=== PATIENT | male | born 1965 | race Caucasian/White ===

== ENCOUNTER 2017-05-01 04:55 | Emergency (ER) | payer OTHER ==
[~2017-05-01] VITALS: Ht 180.3 cm; Wt 95.3 kg
[2017-05-01 05:52] VITALS: BP 135/75
--- NOTE | 2017-05-01 05:52 | NUR ---
CHILLS, ZALDIVAR, JOINT PAIN, GENERALIZED WEAKNESS X1 WK AND RINGING OF EARS X 6 MONTHS. PT AOX3 RR EVEN AND UNLABORED. NO SOB NOTED. NAD NOTED. NO NVD AT THIS TIME. PT GOWNED AND PLACED ON MONITOR WAITING FOR MD BARCENAS.
--- NOTE | 2017-05-01 06:10 | NUR ---
DR MILLER AT BEDSIDE FOR EVAL.
== END 2017-05-01 06:23 | disposition home or self-care (01) ==
LOC: ER 04:57
DX: R51 Headache (principal); H92.09 Otalgia, unspecified ear; R53.1 Weakness; F17.200 Nicotine dependence, unspecified, uncomplicated
CPT/HCPCS: 99283; A4606; Z7610

== ENCOUNTER 2020-01-22 09:18 | Emergency (ER) | payer OTHER ==
[~2020-01-22] VITALS: Ht 182.9 cm; Wt 99.8 kg
[2020-01-22 09:21] VITALS: BP 151/83
--- NOTE | 2020-01-22 09:30 | NUR ---
BIB C/O NECK PAIN FOR 1 WEEK "NECK PAIN GETTING WORSE AND WORSE" TOOK NORCO 5-325 AND FLEXERIL 5MG AT 6AM. PATIENT A/OX4, BREATHING EVEN AND UNLABORED, NO SOB NOTED, AMBULATORY WITH STEADY GAIT.
[2020-01-22] MEDS ORDERED: DEXAMETHASONE SOD PHOSPHATE 10 MG/ML VIAL ONE (10:13)
[2020-01-22] MEDS ORDERED: KETOROLAC TROMETHAMINE INJ 60 MG/2 ML VIAL IM ONE ×2 (10:13→10:30)
[2020-01-22] MEDS ORDERED: DIAZEPAM 5 MG/ML 2 ML DISP.SYRIN ONE (10:14)
--- NOTE | 2020-01-22 10:25 | NUR ---
Patient discharged to home in stable condition. Written and verbal after care instructions given. Patient verbalizes understanding of instruction.
[2020-01-22] MEDS ORDERED: DEXAMETHASONE SOD PHOSPHATE 10 MG/ML VIAL IM ONE (10:30)
[2020-01-22] MEDS ORDERED: DIAZEPAM 5 MG/ML 2 ML DISP.SYRIN IM ONE (10:30)
== END 2020-01-22 11:00 | disposition home or self-care (01) ==
LOC: ER 09:21
DX: M54.12 Radiculopathy, cervical region (principal); G89.29 Other chronic pain; F17.210 Nicotine dependence, cigarettes, uncomplicated; Z98.890 Other specified postprocedural states
CPT/HCPCS: 96372 ×2; 99284; J1100; J1885; J3360

== ENCOUNTER 2020-03-20 12:55 | Emergency (ER) | payer OTHER ==
[~2020-03-20] VITALS: Ht 182.9 cm; Wt 100.7 kg
--- NOTE | 2020-03-20 13:24 | NUR ---
urine collected and sent to lab
[2020-03-20 14:03] LABS: COLOR,URINE ORANGE (YELLOW); PH,URINE 5.5 (5.0-8.0)
[2020-03-20 14:14] LABS: BACTERIA,URINE Few /HPF (None Seen); SQUAMOUS EPITHELIAL CELL,UR Rare /HPF (None Seen)
[2020-03-20 14:40] VITALS: BP 121/67
--- NOTE | 2020-03-20 14:40 | NUR ---
Patient discharged to home in stable condition. Written and verbal after care instructions given. Patient verbalizes understanding of instruction.
== END 2020-03-20 14:41 | disposition home or self-care (01) ==
LOC: ER 13:01
DX: R30.0 Dysuria (principal); R09.81 Nasal congestion; R42 Dizziness and giddiness
CPT/HCPCS: 81000-TC; 82962-TC

== ENCOUNTER 2021-09-09 14:41 | Inpatient (IN) | payer OTHER ==
[~2021-09-09] VITALS: Ht 182.9 cm; Wt 97.5 kg
[2021-09-09] MEDS ORDERED: NITROGLYCERIN PACKET 1 GM PACKET ONE (15:18)
[2021-09-09] MEDS ORDERED: ASPIRIN 325 MG TABLET ONE (15:18)
[2021-09-09] MEDS ORDERED: ASPIRIN 325 MG TABLET PO ONE (15:30)
[2021-09-09] MEDS ORDERED: NITROGLYCERIN PACKET 1 GM PACKET TD ONE (15:30)
[2021-09-09 15:44] LABS: BASOPHILS # (AUTO) 0.1 K/uL (0.0-0.2); BASOPHILS % (AUTO) 0.6 % (0.0-2.0); EOSINOPHILS % (AUTO) 2.3 % (0.0-6.0); HEMATOCRIT 44 % (39-51); HEMOGLOBIN 14.7 g/dL (13.5-17.5); LYMPHOCYTES # (AUTO) 1.8 K/uL (0.8-4.8); LYMPHOCYTES % (AUTO) 16.5 % (20.0-44.0); MEAN CORPUSCULAR HGB CONC 34 g/dl (31.0-36.0); MEAN CORPUSCULAR VOLUME 93 fL (80-96); MONOCYTES # (AUTO) 0.6 K/uL (0.1-1.30); MONOCYTES % (AUTO) 5.6 % (2.0-12.0); NEUTROPHILS # (AUTO) 8.4 K/uL (1.8-8.9); PLATELET COUNT (AUTO) 232 K/uL (150-450); RED BLOOD CELL COUNT(AUTO) 4.69 MIL/uL (4.5-6.0); WHITE BLOOD COUNT (AUTO) 11.2 K/uL (4.3-11.0)
[2021-09-09] MEDS ORDERED: NAPR-1009 PO (15:50)
[2021-09-09] MEDS ORDERED: SUMA100T16 PO (15:50)
[2021-09-09] MEDS ORDERED: TEST5GEL2 TD (15:50)
[2021-09-09 16:17] LABS: ALANINE AMINOTRANSFERASE 28 U/L (12-78); ALBUMIN 3.5 g/dL (3.4-5.0); ALKALINE PHOSPHATASE 55 U/L (46-116); ASPARTATE AMINOTRANSFERASE 20 U/L (15-37); BILIRUBIN,DIRECT 0.1 mg/dL (0.0-0.2); CALCIUM, SERUM 8.9 mg/dL (8.5-10.1); CARBON DIOXIDE 22 mmol/L (21-32); CHLORIDE 106 mmol/L (98-107); CREATININE 1.2 mg/dL (0.6-1.3); GLUCOSE 116 mg/dL (74-106); POTASSIUM 3.7 mmol/L (3.5-5.1); SODIUM SERUM 138 mmol/L (136-145); TOTAL PROTEIN, SERUM 6.5 g/dL (6.4-8.2); UREA NITROGEN, BLOOD 25 mg/dL (7-18)
[2021-09-09 16:33] LABS: BILIRUBIN,TOTAL 0.6 mg/dL (0.2-1.0)
[2021-09-09] MEDS ORDERED: MORPHINE SULFATE INJ 2 MG/ML DISP.SYRIN IV PRN (19:00)
[2021-09-09] MEDS ORDERED: MAG HYDROX/AL HYDROX/SIMETH 30 ML UDC PO PRN (19:00)
[2021-09-09] MEDS ORDERED: HYDROCODONE/APAP 5/325MG TABLET PO PRN (19:00)
[2021-09-09] MEDS ORDERED: ONDANSETRON HCL/PF 4 MG/2 ML VIAL IVP PRN (19:00)
[2021-09-09] MEDS ORDERED: Z GUARD REMEDY 4 OZ OINT TP PRN (19:00)
[2021-09-09] MEDS ORDERED: NITROGLYCERIN 0.4 MG/TAB BOTTLE SL PRN (19:00)
[2021-09-09] MEDS ORDERED: ACETAMINOPHEN 325 MG TABLET PO PRN (19:00)
[2021-09-09 20:00] VITALS: BP 115/69
[2021-09-09] MEDS ORDERED: MAGNESIUM HYDROXIDE 30 ML UDC PO PRN (22:00)
[2021-09-10 02:17] VITALS: BP 119/65
[2021-09-10 04:00] VITALS: BP 100/61
[2021-09-10 06:11] LABS: BASOPHILS # (AUTO) 0.1 K/uL (0.0-0.2); BASOPHILS % (AUTO) 0.6 % (0.0-2.0); EOSINOPHILS % (AUTO) 3.1 % (0.0-6.0); HEMATOCRIT 41 % (39-51); HEMOGLOBIN 13.9 g/dL (13.5-17.5); LYMPHOCYTES # (AUTO) 1.8 K/uL (0.8-4.8); MEAN CORPUSCULAR HGB CONC 34 g/dl (31.0-36.0); MEAN CORPUSCULAR VOLUME 93 fL (80-96); MONOCYTES # (AUTO) 0.6 K/uL (0.1-1.30); MONOCYTES % (AUTO) 6.1 % (2.0-12.0); NEUTROPHILS # (AUTO) 6.8 K/uL (1.8-8.9); NEUTROPHILS % (AUTO) 71.2 % (43.0-81.0); PLATELET COUNT (AUTO) 213 K/uL (150-450); RED BLOOD CELL COUNT(AUTO) 4.37 MIL/uL (4.5-6.0); WHITE BLOOD COUNT (AUTO) 9.5 K/uL (4.3-11.0)
[2021-09-10 06:19] LABS: CALCIUM, SERUM 8.6 mg/dL (8.5-10.1); CREATININE 1.1 mg/dL (0.6-1.3); PHOSPHORUS 3.1 mg/dL (2.5-4.9); POTASSIUM 4.1 mmol/L (3.5-5.1)
[2021-09-10 08:35] VITALS: BP 121/66
[2021-09-10] MEDS ORDERED: TESTOSTERONE TD SCH (09:00)
[2021-09-10] MEDS ORDERED: ASPIRIN 325 MG TABLET PO SCH (09:00)
[2021-09-10] MEDS ORDERED: BUTALB/APAP/CAFFEINE 1 EACH TABLET PO PRN (11:00)
[2021-09-10 12:00] VITALS: BP 122/75
[2021-09-10] MEDS ORDERED: FAMOTIDINE (20 MG) 20 MG TABLET PO SCH (13:00)
[2021-09-10 16:00] VITALS: BP 121/67
[2021-09-10] MEDS ORDERED: ASPI-992 PO (18:16)
[2021-09-11] MEDS ORDERED: HOME MED MISCELLANEOUS TP SCH (09:00)
== END 2021-09-10 18:54 | disposition home or self-care (01) | DRG 203 ==
LOC: ER 14:45 → TRANSITION 17:45 → TELE 17:57 → MED 09-10 14:09
PROVIDERS: ADMIT Internal Medicine; ATTEND Internal Medicine
DX: M94.0 Chondrocostal junction syndrome [Tietze] (principal); N17.0 Acute kidney failure with tubular necrosis; E29.1 Testicular hypofunction; M51.27 Other intervertebral disc displacement, lumbosacral region; Z20.822 Contact with and (suspected) exposure to COVID-19; Z98.890 Other specified postprocedural states; F17.200 Nicotine dependence, unspecified, uncomplicated; Z79.899 Other long term (current) drug therapy; E29.0 Testicular hyperfunction; G89.29 Other chronic pain; M51.26 Other intervertebral disc displacement, lumbar region; I50.32 Chronic diastolic (congestive) heart failure
CPT/HCPCS: 36415; 71045-TC; 80048-TC; 80061-TC; 80076-TC; 83735-TC; 84100-TC; 84484-TC; 85025-TC; 87081-TC; 93307-TC; C9803; G0378

== ENCOUNTER 2023-07-20 09:38 | Emergency (ER) | payer OTHER ==
[~2023-07-20] VITALS: Ht 182.9 cm; Wt 95.3 kg
[~2023-07-20 09:38] MED LIST: ASPI-992 PO; NAPR-1009 PO; SUMA100T16 PO; TEST5GEL2 TD
[2023-07-20 10:28] LABS: CALCIUM, SERUM 9.1 mg/dL (8.5-10.1); CREATININE 0.9 mg/dL (0.6-1.3); POTASSIUM 4.3 mmol/L (3.5-5.1)
[2023-07-20 10:35] LABS: ALBUMIN 3.2 g/dL (3.4-5.0); BILIRUBIN,DIRECT 0.1 mg/dL (0.0-0.2); BILIRUBIN,TOTAL 0.3 mg/dL (0.2-1.0); TOTAL PROTEIN, SERUM 6.3 g/dL (6.4-8.2)
[2023-07-20 10:44] LABS: APPEARANCE,URINE CLEAR (CLEAR); BILIRUBIN,URINE NEGATIVE (NEGATIVE); BLOOD, URINE NEGATIVE Ery/uL (NEGATIVE); KETONES,URINE NEGATIVE (NEGATIVE); LEUKOCYTE ESTERASE ,URINE NEGATIVE (NEGATIVE); NITRITE, URINE POSITIVE (NEGATIVE); PH,URINE 5.5 (5.0-8.0); PROTEIN,URINE TRACE mg/dl (NEGATIVE); UGLUCOSE TRACE mg/dL (NEGATIVE)
[2023-07-20 10:44] LABS: BASOPHILS # (AUTO) 0.1 K/uL (0.0-0.2); BASOPHILS % (AUTO) 0.8 % (0.0-2.0); EOSINOPHILS # (AUTO) 0.2 K/uL (0.0-0.7); EOSINOPHILS % (AUTO) 3.3 % (0.0-6.0); HEMATOCRIT 42 % (39-51); HEMOGLOBIN 14.1 g/dL (13.5-17.5); LYMPHOCYTES # (AUTO) 1.5 K/uL (0.8-4.8); LYMPHOCYTES % (AUTO) 22.2 % (20.0-44.0); MEAN CORPUSCULAR HEMOGLOBIN 31 PG (26.0-33.0); MEAN CORPUSCULAR HGB CONC 33 g/dl (31.0-36.0); MEAN CORPUSCULAR VOLUME 92 fL (80-96); MONOCYTES # (AUTO) 0.6 K/uL (0.1-1.30); MONOCYTES % (AUTO) 9.7 % (2.0-12.0); NEUTROPHILS # (AUTO) 4.2 K/uL (1.8-8.9); PLATELET COUNT (AUTO) 264 K/uL (150-450); RED BLOOD CELL COUNT(AUTO) 4.62 MIL/uL (4.5-6.0); RED CELL DISTRIBUTION WIDTH 13.3 % (11.5-15.0); WHITE BLOOD COUNT (AUTO) 6.6 K/uL (4.3-11.0)
[2023-07-20 10:45] LABS: COLOR,URINE AMBER (YELLOW)
[2023-07-20] MEDS ORDERED: CIPR-262 PO (10:59)
[2023-07-20 11:27] VITALS: BP 124/91; TEMP 98; O2SAT 98
[2023-07-20 11:32] LABS: ADD URINE CULTURE YES; BACTERIA,URINE None seen /HPF (None Seen); RBC,URINE 0-2 /HPF (0-2); SQUAMOUS EPITHELIAL CELL,UR Rare /HPF (None Seen); WBC,URINE NONE SEEN /HPF (0-3)
== END 2023-07-20 11:27 | disposition home or self-care (01) ==
LOC: ER 09:38
DX: N39.0 Urinary tract infection, site not specified (principal); Z79.899 Other long term (current) drug therapy
CPT/HCPCS: 36415; 80048-TC; 80076-TC; 81001; 83690-TC; 85025-TC; 87086-TC